=== PATIENT | female | born 1930 | race Caucasian/White ===

== ENCOUNTER 2017-09-27 12:38 | Inpatient (IN) | payer MEDICARE, OTHER ==
[~2017-09-27] VITALS: Ht 162.6 cm; Wt 51.1 kg
[~2017-09-27 12:38] MED LIST: ACET325T21 PO; CIPR500T87 PO; LISI-167 PO; MEMA10TA PO; ONDA4TAB12 PO; TRAM50TA2 PO
[2017-09-27] MEDS ORDERED: SODIUM CHLORIDE 0.9% 1,000ML IVBOLUS ONE ×3 (13:00→14:30)
[2017-09-27 13:32] LABS: MEAN CORPUSCULAR HEMOGLOBIN 29.6 pg (27.0-34.8); MEAN CORPUSCULAR HGB CONC 31.8 g/dL (32.4-35.8); MEAN CORPUSCULAR VOLUME 93.3 fL (80-100); MEAN PLATELET VOLUME 8.7 fL (7.4-10.4); PLATELET COUNT 256 x10^3/uL (130-400); RED CELL DISTRIBUTION WIDTH 15.1 % (9.6-15.2)
[2017-09-27 13:40] LABS: ALBUMIN 1.6 g/dL (3.4-5.0); ANION GAP 21 mmol/L (5-15); CALCIUM 7.5 mg/dL (8.5-10.1); CHLORIDE 115 mmol/L (98-107)
[2017-09-27 13:48] LABS: ALANINE AMINOTRANSFERASE 72 U/L (12-78); ALKALINE PHOSPHATASE 74 U/L (45-117); BILIRUBIN,TOTAL 0.6 mg/dL (0.2-1.0); CREATININE 3.79 mg/dL (0.55-1.02); TOTAL PROTEIN 4.5 g/dL (6.4-8.2); TROPONIN I 0.086 ng/mL (0.000-0.045)
[2017-09-27 13:50] LABS: MD YES
[2017-09-27 13:52] LABS: BAND#(MANUAL) 3.95 x10^3/uL; BANDS%(MANUAL) 21 % (0-7); EOS#(MANUAL) 0.19 x10^3/uL (0.0-0.4); EOS% (MANUAL) 1 % (1-7); METAMYELOCYTES# (MANUAL) 0.38 x10^3/uL (0-0); METAMYELOCYTES% (MANUAL) 2 % (0-1); MONOS#(MANUAL) 0.56 x10^3/uL (0.3-2.7); MONOS% (MANUAL) 3 % (2-9); MYELOCYTES# (MANUAL) 0.38 x10^3/uL (0-0); MYELOCYTES% (MANUAL) 2 % (0-0); REACTIVE LYMPHS # (MANUAL) 0.38 x10^3/uL (0-0); REACTIVE LYMPHS % (MANUAL) 2 % (0-0)
[2017-09-27 13:53] LABS: LYMPH#(MANUAL) 2.26 x10^3/uL (1-3.4); LYMPHS% (MANUAL) 12 % (22-44); SEG#(MANUAL) 10.72 x10^3/uL (1.8-6.8); SEGS% (MANUAL) 57 % (42-75)
[2017-09-27 13:54] LABS: ANISOCYTOSIS 1+
[2017-09-27 13:55] LABS: <PLATELET ESTIMATE> ADEQUATE; <PLT MORPHOLOGY> NORMAL PLT MORPH; PMNS WITH VACUOLES 1+; TOXIC GRAN 1+
[2017-09-27] MEDS ORDERED: NOREPINEPHRINE 4 MG in SODIUM CHLORIDE 0.9% 246 ML IV PRN (14:30)
[2017-09-27] MEDS ORDERED: VANCOMYCIN PER PHARMACY IV ONE (14:30)
[2017-09-27] MEDS ORDERED: VANCOMYCIN PMX 1GM/200ML 200 ML IV ONE (14:30)
[2017-09-27] MEDS ORDERED: PIPERACILLIN/TAZO/PMX 3.375GM 50 ML IVPB ONE (14:30)
[2017-09-27] MEDS ORDERED: SODIUM BICARB 8.4%, 50ML SYRINGE IVPush ONE (14:30)
[2017-09-27] MEDS ORDERED: SODIUM BICARB 8.4%, 50ML SYRINGE ONE (14:31)
[2017-09-27 14:48] VITALS: BP 72/25
[2017-09-27] MEDS ORDERED: ONDANSETRON ODT 4 MG PO PRN (15:30)
[2017-09-27] MEDS: LORazepam 2 MG/ML, 1ML IVPush PRN (17:23)
[2017-09-27] MEDS: morphine SULFATE 10 MG/ML, 1ML IVPush PRN (21:40)
[2017-09-27] MEDS ORDERED: SCOPOLAMINE PATCH, 1.5MG PATCH.TD72 TD SCH (22:30)
[2017-09-28] MEDS: morphine SULFATE 10 MG/ML, 1ML IVPush PRN ×2 (00:57→03:57)
[2017-09-28] MEDS: LORazepam 2 MG/ML, 1ML IVPush PRN (05:22)
== END 2017-09-28 06:34 | disposition expired | DRG 871 ==
LOC: ED 14:49 → 3NW 15:09 → ED 15:42
PROVIDERS: ADMIT Hospitalist; ATTEND Hospitalist
DX: A41.9 Sepsis, unspecified organism (principal); R65.21 Severe sepsis with septic shock; J96.00 Acute respiratory failure, unspecified whether with hypoxia or hypercapnia; N17.9 Acute kidney failure, unspecified; Z66 Do not resuscitate; E11.9 Type 2 diabetes mellitus without complications; F03.90 Unspecified dementia, unspecified severity, without behavioral disturbance, psychotic disturbance, mood disturbance, and anxiety; I10 Essential (primary) hypertension; M51.36 Other intervertebral disc degeneration, lumbar region; Z51.5 Encounter for palliative care; Z87.440 Personal history of urinary (tract) infections
CPT/HCPCS: 36600; 71045; 80053; 82803; 83605; 83880; 84484; 85025; 87040; 93005; 99291; J2060; J2270; J7030